=== PATIENT | female | born 1990 | race Hispanic/Latino ===

== ENCOUNTER 2020-07-18 09:45 | Emergency (ER) | payer BC ==
[~2020-07-18] VITALS: Ht 160 cm; Wt 130.1 kg
[2020-07-18] MEDS ORDERED: PREN1CHW4 PO (10:06)
[2020-07-18 12:27] VITALS: BP 108/51
[2020-07-18 12:37] LABS: APPEARANCE, URINE HAZY (CLEAR); BACTERIA, URINE AUTO NEGATIVE (NEGATIVE); BILIRUBIN, URINE AUTO NEGATIVE (NEGATIVE); BLOOD, URINE BLOOD NEGATIVE (NEGATIVE); COLOR, URINE YELLOW (YELLOW); GLUCOSE, URINE (UA) AUTO NEGATIVE (NEGATIVE); KETONE, URINE AUTO 1+ mg/dL (NEGATIVE); LEUKOCYTE ESTERASE, URINE AUTO NEGATIVE (NEGATIVE); MUCUS, URINE SMALL (NEGATIVE); NITRITE, URINE AUTO NEGATIVE (NEGATIVE); PROTEIN, URINE AUTO NEGATIVE (NEGATIVE); RBC, URINE AUTO 2 /HPF (0-3); SPECIFIC GRAVITY URINE AUTO 1.026 (1.002-1.035); SQUAMOUS EPITHELIAL CELL UR AU 5 /HPF (0-6); UROBILINOGEN, URINE AUTO 0.2 mg/dL (0.0-2.0); WBC, URINE AUTO 1 /HPF (0-3)
--- NOTE | 2020-07-18 13:08 | REP ---
INDICATION: fall with abd cramping 16.2wks preg COMPARISON: None. TECHNIQUE: Transabdominal obstetrical ultrasound with color Doppler evaluation. FINDINGS: Examination demonstrates a single live intrauterine currently in cephalic presentation. motion is identified by technologist. Placenta is noted posterior/fundal and grade 0 without evidence for placenta previa or abruption. Amniotic fluid volume is normal. Cervix appears closed. Gestational age by LMP 17 weeks 3 days with SADAF 12/23/2020. FHR equals 161 beats per minute. IMPRESSION: Single live intrauterine . No gross abnormalities are identified. No obvious evidence for injury or trauma. <Electronically signed by Humza Laboy > 07/18/20 [id number]
== END 2020-07-18 13:17 | disposition home or self-care (01) ==
LOC: M ED 09:45
DX: O9A.212 Injury, poisoning and certain other consequences of external causes complicating pregnancy, second trimester (principal); R10.9 Unspecified abdominal pain; W01.0XXA Fall on same level from slipping, tripping and stumbling without subsequent striking against object, initial encounter; Y92.89 Other specified places as the place of occurrence of the external cause; Y93.89 Activity, other specified; Y99.0 Civilian activity done for income or pay; O99.332 Smoking (tobacco) complicating pregnancy, second trimester; F17.210 Nicotine dependence, cigarettes, uncomplicated; Z3A.16 16 weeks gestation of pregnancy